=== PATIENT | female | born 1930 | race Caucasian/White ===

== ENCOUNTER → 2017-08-12 | Outpatient (CLI) | payer MEDICARE, OTHER ==
[~2017-08-12] MED LIST: /PRAV20TA OR; /WARF25TA OR; ALDA25TA2 OR; ASPI81TA45 OR; CALC500T49 OR; COZA25TA8 OR; GLUC1000 OR; LASI40TA OR; LISI20TA5 OR; LOPR50TA OR; MAALSUS OR; PLAV75TA2 OR; PRIL40CA OR; SLOWTAB OR; UNIVASC OR; ZEST10TA OR
--- NOTE | 2017-08-12 12:44 | REP ---
Clinical: Chronic renal disease stage IV. Technique: Real time vazquez scale and color evaluation using curved array transducer. Findings: The bilateral kidneys are normal in contour, and echogenicity with mildly prominent central renal sinus fat consistent with chronic medical renal disease. No evidence for hydronephrosis, nephrolithiasis, cystic or mass lesion. Right kidney measures 11.6 x 5.0 x 6.0 cm. Left kidney appears mildly atrophic and measures 9.5 x 4.8 x 3.7 cm. Bladder demonstrates layering debris without wall thickening or focal mass lesion. Prevoid bladder measures 9.5 x 8.2 x 8.2 cm (417 ml). Postvoid bladder measures 9.7 x 8.1 x 6.0 cm (308 ml). Postvoid residual equals 74%. Incidental note is made of a heterogeneous prominent uterus. Impression: 1. Findings compatible with history of chronic medical renal disease and asymmetric atrophic appearance to the left kidney. No hydronephrosis. 2. Abnormally increased postvoid residual volume during examination. 3. Heterogeneous enlarged uterus. Signed by Kyle Ennis MD 08/12/2017 12:36 P
== END ==
LOC: M RAD 10:29
PROVIDERS: ATTEND Internal Medicine Nephrology
DX: N18.4 Chronic kidney disease, stage 4 (severe) (principal); I10 Essential (primary) hypertension; E11.22 Type 2 diabetes mellitus with diabetic chronic kidney disease; R35.0 Frequency of micturition; N85.2 Hypertrophy of uterus

== ENCOUNTER → 2017-08-23 | Outpatient (REF) | payer MEDICARE, OTHER ==
[2017-08-23 12:52] LABS: ALBUMIN 3.5 GM/DL (3.2-5.2); CALCIUM LEVEL 9.7 MG/DL (8.8-10.2); CREATININE FOR GFR 1.93 MG/DL (0.55-1.02); GLOMERULAR FILTRATION RATE 26.1 (>32); PHOSPHORUS LEVEL 4.6 MG/DL (2.5-4.9); POTASSIUM SERUM 4.1 MEQ/L (3.5-5.1)
== END ==
LOC: M LABDRAW1 10:05
PROVIDERS: ATTEND Internal Medicine Cardiovascular Disease
DX: I11.0 Hypertensive heart disease with heart failure (principal); I50.9 Heart failure, unspecified